=== PATIENT | female | born 1970 | race Caucasian/White ===

== ENCOUNTER 2024-12-13 06:59 | Day surgery (SDC) | payer BC ==
[2024-12-13] MEDS: Dextrose 5%-0.45% NaCl 1,000 ML IV SCH (07:26)
[2024-12-13] MEDS ORDERED: fentaNYL 100 MCG/2 ML SDV ONE (07:53)
[2024-12-13] MEDS ORDERED: Midazolam 1 MG/ML 2 ML SDV ONE (07:53)
[2024-12-13] MEDS: fentaNYL 100 MCG/2 ML SDV IV ONE ×2 (07:59)
[2024-12-13] MEDS: Midazolam 1 MG/ML 2 ML SDV IV ONE ×5 (08:00→08:07)
[2024-12-13] MEDS ORDERED: Midazolam 1 MG/ML 2 ML SDV IV ONE (08:19)
[2024-12-13] MEDS ORDERED: fentaNYL 100 MCG/2 ML SDV IV ONE (08:19)
== END 2024-12-13 09:45 | disposition home or self-care (01) ==
LOC: DL.ENDO 06:59
PROVIDERS: ATTEND Internal Medicine Gastroenterology
DX: Z12.11 Encounter for screening for malignant neoplasm of colon (principal); D12.0 Benign neoplasm of cecum; K57.30 Diverticulosis of large intestine without perforation or abscess without bleeding; E78.00 Pure hypercholesterolemia, unspecified; E66.09 Other obesity due to excess calories; Z68.32 Body mass index [BMI] 32.0-32.9, adult; Z88.2 Allergy status to sulfonamides
CPT/HCPCS: 45385; J2250; J3010